=== PATIENT | female | born 1990 | race African-American/Black ===

== ENCOUNTER 2016-09-11 23:42 | Emergency (ER) | payer SELFPAY ==
[2016-09-12] MEDS ORDERED: DIPH/PERTUSS(ACELL)/TETANUS VAC/PF 0.5 ML SYR (>=10YO) IM ONE (00:24)
--- NOTE | 2016-09-12 00:30 | ER Document Report ---
ED General - General Chief Complaint: Laceration Stated Complaint: LACERATION/LEFT PINKY FINGER Time Seen by Provider: 09/12/16 00:14 Notes: Patient is a 26-year-old female who presents with complaint of cutting the tip of her right fifth digit with a box knife. This was accidental. She says he continued to bleed and therefore she came to the ER. No other injuries or trauma. She is unsure when her last tetanus shot was. TRAVEL OUTSIDE OF THE [place] IN LAST 30 DAYS: No - Related Data Allergies/Adverse Reactions: No Known Drug Allergies Allergy (Verified 09/17/12 01:03) cats Allergy (Mild, Uncoded 09/17/12 01:03) Past Medical History - Social History Smoking Status: Never Smoker Frequency of alcohol use: None Drug Abuse: None Family History: Reviewed & Not Pertinent Patient has suicidal ideation: No Patient has homicidal ideation: No Neurological Medical History: Reports: Hx Migraine Renal/ Medical History: Denies: Hx Peritoneal Dialysis - Immunizations Immunizations up to date: Yes Hx Diphtheria, Pertussis, Tetanus Vaccination: Yes - given today Hx Pneumococcal Vaccination: 03/18/00 Review of Systems - Review of Systems Notes: My Normal Review Basic REVIEW OF SYSTEMS: CONSTITUTIONAL : Denies fever, chills, or sweats. Denies recent illness. MUSCULOSKELETAL: cut to the tip of the right fifth digit. SKIN: Denies rash or skin lesions. ALL OTHER SYSTEMS REVIEWED AND NEGATIVE. Physical Exam - Vital signs Vitals: Temp Pulse Resp BP Pulse Ox 98.2 F 86 18 133/75 H 98 09/11/16 23:48 09/11/16 23:48 09/11/16 23:48 09/11/16 23:48 09/11/16 23:48 - Notes Notes: General Appearance: Well nourished, alert, cooperative, no acute distress, mild obvious discomfort. Vitals: reviewed, See vital signs table. Extremities: strength 5/5 in all extremities, good pulses in all extremities, patient is superficial avulsion of the right fifth fingertip. The bulging goes just below the dermis itself. Approximately 1 cm in size. Small amount of active venous oozing., no edema. Skin: warm, dry, appropriate color, no rash Neuro: speech clear, oriented x 3, normal affect, responds appropriately to questions. Course - Vital Signs Vital signs: Temp Pulse Resp BP Pulse Ox 98.2 F 86 18 133/75 H 98 09/11/16 23:48 09/11/16 23:48 09/11/16 23:48 09/11/16 23:48 09/11/16 23:48 - Transfer of Care Notes: 09/12/16 00:28 The finger was irrigated with saline. Then held pressure over the tip of the finger and then applied Dermabond. Patient over has any bleeding with the fingertip. Patient is full function of the fingertip. The cut is superficial. Patient encouraged to return to ER if she has redness or swelling to the finger or any signs of infection. Patient will be given tetanus shot. Patient agrees with plan will be discharged home. Dictation of this chart was performed using voice recognition software; therefore, there may be some unintended grammatical errors. Procedures - Laceration/Wound Repair right 5th digit Wound length (cm): 1 Wound's Depth, Shape: Superficial Wound explored: Clean Irrigated w/ Saline (mLs): 10 Wound Repaired With: Dermabond Complications: No Discharge - Discharge Clinical Impression: Avulsion, finger tip Qualifiers: Encounter type: initial encounter Qualified Code(s): S61.209A - Unspecified open wound of unspecified finger without damage to nail, initial encounter Condition: Good Disposition: HOME, SELF-CARE Additional Instructions: Please return to the ER if you have redness, swelling, or signs of infection.
[2016-09-12 00:57] VITALS: BP 130/76
== END 2016-09-12 00:55 | disposition home or self-care (01) ==
LOC: ER 23:42
DX: S61.209A Unspecified open wound of unspecified finger without damage to nail, initial encounter (principal); W26.0XXA Contact with knife, initial encounter; Z23 Encounter for immunization
CPT/HCPCS: 90471; 90715; 99282

== ENCOUNTER 2016-12-16 21:34 | Emergency (ER) | payer OTHER ==
[2016-12-16] MEDS ORDERED: PROPOFOL INJ 200 MG/20 ML VIAL IV ONE (22:47)
[2016-12-16] MEDS ORDERED: NORMAL SALINE 1000 ML 1,000 ML IV ONE (22:47)
--- NOTE | 2016-12-16 22:49 | RADIOLOGY REPORT (SQ) ---
EXAM DESCRIPTION: SHOULDER RIGHT 2 OR MORE VIEWS COMPLETED DATE/TIME: 12/16/2016 10:22 pm REASON FOR STUDY: pain COMPARISON: None. NUMBER OF VIEWS: Two views. TECHNIQUE: Internal rotation, and Y view images acquired of the right shoulder. LIMITATIONS: None. FINDINGS: MINERALIZATION: Normal. BONES: Anterior- inferior glenohumeral dislocation. No fracture identified. No worrisome bone lesio ns. JOINTS: No dislocation. VISUALIZED LUNGS AND RIBS: No pneumothorax. No rib fracture. SOFT TISSUES: No radiopaque foreign body. OTHER: No other significant finding. IMPRESSION: Anterior- inferior glenohumeral dislocation. No fracture identified. TECHNICAL DOCUMENTATION: JOB ID: [id number] [email or web address]- All Rights Reserved
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
[2016-12-17 00:48] VITALS: BP 126/64
--- NOTE | 2016-12-17 01:25 | RADIOLOGY REPORT (SQ) ---
EXAM DESCRIPTION: SHOULDER RIGHT 1 VIEW COMPLETED DATE/TIME: 12/17/2016 12:32 am REASON FOR STUDY: POST REDUCTION COMPARISON: Right humerus x-ray 12/16/2016 NUMBER OF VIEWS: One view. TECHNIQUE: One view acquired of the right shoulder. LIMITATIONS: None. FINDINGS: MINERALIZATION: Normal. BONES: Interval closed reduction of the previously described anterior right shoulder dislocation. Li viktoriya evaluation for acute fracture on single view. VISUALIZED LUNGS AND RIBS: No pneumothorax. No displaced rib fracture. IMPRESSION: Status post closed reduction of the previously described anterior right shoulder disloca tion. TECHNICAL DOCUMENTATION: JOB ID: [id number] [employer]- All Rights Reserved
== END 2016-12-17 00:48 | disposition home or self-care (01) ==
LOC: ER 21:34
PROC: 0RSJXZZ Reposition Right Shoulder Joint, External Approach (ICD-10-PCS; principal; 2016-12-16)
DX: S43.004A Unspecified dislocation of right shoulder joint, initial encounter (principal); M79.601 Pain in right arm; Y04.0XXA Assault by unarmed brawl or fight, initial encounter; Y99.0 Civilian activity done for income or pay; Z88.0 Allergy status to penicillin
CPT/HCPCS: 99284; 96360; 99152; 73020; 73030; 23650; L3650 ×2; J7030; J2704

== ENCOUNTER 2017-10-22 22:31 | Emergency (ER) | payer OTHER ==
[2017-10-23] MEDS ORDERED: DEXAMETHASONE SOD PHOS INJ 10 MG/1 ML VIAL IM ONE (01:06)
--- NOTE | 2017-10-23 01:07 | ER Document Report ---
ED General - General Chief Complaint: Sore Throat Stated Complaint: SORE THROAT Time Seen by Provider: 10/23/17 00:56 Notes: Patient presents with sore throat and losing her voice. Sore throat started approximately Saturday and the patient's voice issues started earlier today. No known medical problems has not had any nausea vomiting. Is able to swallow. Is playful during exam and laughing with her boyfriend. Patient denies any cough or congestion at this time. TRAVEL OUTSIDE OF THE [place] IN LAST 30 DAYS: No - Related Data Allergies/Adverse Reactions: amoxicillin Allergy (Verified 12/16/16 21:44) No Known Drug Allergies Allergy (Verified 09/17/12 01:03) cats Allergy (Mild, Uncoded 12/16/16 21:44) Past Medical History - Social History Smoking Status: Unknown if Ever Smoked Family History: Reviewed & Not Pertinent Neurological Medical History: Reports: Hx Migraine Renal/ Medical History: Denies: Hx Peritoneal Dialysis - Immunizations Immunizations up to date: Yes Hx Diphtheria, Pertussis, Tetanus Vaccination: Yes - given today Hx Pneumococcal Vaccination: 03/18/00 Review of Systems - Review of Systems Constitutional: No symptoms reported EENT: See HPI Cardiovascular: No symptoms reported Respiratory: No symptoms reported Gastrointestinal: No symptoms reported Genitourinary: No symptoms reported Female Genitourinary: No symptoms reported Musculoskeletal: No symptoms reported Skin: No symptoms reported Hematologic/Lymphatic: No symptoms reported Neurological/Psychological: No symptoms reported Physical Exam - Vital signs Vitals: Temp Pulse Resp BP Pulse Ox 99.0 F 83 16 133/78 H 95 10/22/17 22:44 10/22/17 22:44 10/22/17 22:44 10/22/17 22:44 10/22/17 22:44 - General General appearance: Appears well, Alert - HEENT Head: Normocephalic, Atraumatic - No tonsillar swelling no uvula swelling normal oropharynx no bulging of posterior oropharynx Eyes: Normal Conjunctiva: Normal - Respiratory Respiratory status: No respiratory distress - Lungs are clear to auscultation bilaterally no wheezing or crackles with good air movement - Cardiovascular Rhythm: Regular Heart sounds: Normal auscultation Murmur: No - Abdominal Inspection: Normal - Neurological Cognition: Normal Course - Re-evaluation Re-evalutation: 08/08/18 01:05 Patient well-appearing in no acute distress signs and symptoms are consistent with likely viral pharyngitis with component of laryngitis. Will provide Decadron administration with return precautions provided - Vital Signs Vital signs: Temp Pulse Resp BP Pulse Ox 97.9 F 75 18 133/77 H 98 10/23/17 02:13 10/23/17 02:13 10/23/17 02:13 10/23/17 02:13 10/23/17 02:13 Discharge - Discharge Clinical Impression: Laryngitis Pharyngitis Qualifiers: Pharyngitis/tonsillitis etiology: unspecified etiology Qualified Code(s): J02.9 - Acute pharyngitis, unspecified Condition: Good Disposition: HOME, SELF-CARE Instructions: Corticosteroid Medication ([facility]), Laryngitis ([facility]), Sore Throat ( [facility]) Additional Instructions: Please use [id number] Advil Cold and Sinus for symptom relief return to emergency department the next 3-4 days if symptoms are worsening
[2017-10-23 02:15] VITALS: BP 133/77
== END 2017-10-23 02:15 | disposition home or self-care (01) ==
LOC: ER 22:31
DX: J04.0 Acute laryngitis (principal); J02.9 Acute pharyngitis, unspecified
CPT/HCPCS: 99282; 96372; J1100

== ENCOUNTER 2017-10-25 12:35 | Emergency (ER) | payer OTHER ==
[2017-10-25 12:56] VITALS: BP 117/75
[2017-10-25] MEDS ORDERED: DEXAMETHASONE SOD PHOS INJ 10 MG/1 ML VIAL IV ONE (14:37)
[2017-10-25] MEDS ORDERED: KETOROLAC TROMETHAMINE INJ/PF 30 MG/1 ML SDV IV ONE (14:37)
--- NOTE | 2017-10-25 14:40 | ER Document Report ---
ED ENT - General Chief Complaint: Sore Throat Stated Complaint: SORE THROAT Time Seen by Provider: 10/25/17 14:23 Mode of Arrival: Ambulatory Information source: Patient Notes: 47-year-old female presents to ED for continued sore throat. She states she was in here on Saturday for sore throat and was treated with Decadron and told she had laryngitis but her pain has not gotten better she has not gotten rid of the sore throat she does not have a fever but she feels like her throat has a lump in it. She states her voice has not improved and she can barely talk. She is alert and oriented respirations regular and unlabored she does speak with a hoarse voice and walks with a even steady gait. TRAVEL OUTSIDE OF THE [place] IN LAST 30 DAYS: No - HPI Patient complains to provider of: Throat problem Onset: Other Onset/Duration: Persistent Quality of pain: Sharp Context: Recent Illness Location of pain: Sinus, Throat Associated symptoms: Hoarse voice, Runny nose, Sinus drainage, Sore throat Similar symptoms previously: Yes Recently seen / treated by doctor: Yes - Related Data Allergies/Adverse Reactions: amoxicillin Allergy (Verified 12/16/16 21:44) No Known Drug Allergies Allergy (Verified 09/17/12 01:03) cats Allergy (Mild, Uncoded 12/16/16 21:44) Past Medical History - General Information source: Patient - Social History Smoking Status: Never Smoker Cigarette use (# per day): No Chew tobacco use (# tins/day): No Smoking Education Provided: No Frequency of alcohol use: None Drug Abuse: None Occupation: [employer] Lives with: Family Family History: Reviewed & Not Pertinent Patient has suicidal ideation: No Patient has homicidal ideation: No - Past Medical History Cardiac Medical History: Reports: None Pulmonary Medical History: Reports: None EENT Medical History: Reports: None Neurological Medical History: Reports: Hx Migraine Endocrine Medical History: Reports: None Renal/ Medical History: Reports: None Malignancy Medical History: Reports: None GI Medical History: Reports: None Musculoskeletal Medical History: Reports None Psychiatric Medical History: Reports: None Traumatic Medical History: Reports: None Infectious Medical History: Reports: None Surgical Hx: Negative Past Surgical History: Reports: None - Immunizations Immunizations up to date: Yes Hx Diphtheria, Pertussis, Tetanus Vaccination: Yes - given today Hx Pneumococcal Vaccination: 03/18/00 Review of Systems - Review of Systems Constitutional: No symptoms reported EENT: Sinus discharge, Throat pain, Difficulty swallowing, Other - hoarse voice Cardiovascular: No symptoms reported Respiratory: No symptoms reported Gastrointestinal: No symptoms reported Genitourinary: No symptoms reported Female Genitourinary: No symptoms reported Musculoskeletal: No symptoms reported Skin: No symptoms reported Hematologic/Lymphatic: No symptoms reported Neurological/Psychological: No symptoms reported -: Yes All other systems reviewed and negative Physical Exam - Vital signs Vitals: Temp Pulse Resp BP Pulse Ox 98.6 F 77 18 117/75 99 10/25/17 12:55 10/25/17 12:55 10/25/17 12:55 10/25/17 12:55 10/25/17 12:55 Interpretation: Normal - General General appearance: Appears well, Alert - HEENT Head: Normocephalic, Atraumatic Eyes: Normal Pupils: PERRL Ears: Normal External canal: Normal Tympanic membrane: Normal Sinus: Normal Nasal: Purulent discharge, Swelling Mouth/Lips: Normal Pharynx: Erythema, Post nasal drainage Neck: Anterior cervical chain - Respiratory Respiratory status: No respiratory distress Chest status: Nontender Breath sounds: Nonproductive cough Chest palpation: Normal - Cardiovascular Rhythm: Regular Heart sounds: Normal auscultation Murmur: No - Abdominal Inspection: Normal Distension: No distension Bowel sounds: Normal Tenderness: Nontender Organomegaly: No organomegaly - Back Back: Normal, Nontender - Extremities General upper extremity: Normal inspection, Nontender, Normal color, Normal ROM , Normal temperature General lower extremity: Normal inspection, Nontender, Normal color, Normal ROM , Normal temperature, Normal weight bearing. No: Beverly's sign - Neurological Neuro grossly intact: Yes Cognition: Normal Orientation: AAOx4 [place] Coma Scale Eye Opening: Spontaneous [place] Coma Scale Verbal: Oriented [place] Coma Scale Motor: Obeys Commands Nat Coma Scale Total: 15 Speech: Normal Motor strength normal: LUE, RUE, LLE, RLE Sensory: Normal - Psychological Associated symptoms: Normal affect, Normal mood - Skin Skin Temperature: Warm Skin Moisture: Dry Skin Color: Normal Course - Re-evaluation Re-evalutation: 10/25/17 21:27 Decadron and ibuprofen given to patient for her continued sore throat. Patient was discharged home with prescription for Magic mouthwash. Her strep test and mono test were negative. Patient was given a written report of these results. She was instructed that the throat culture was also sent a day which she would be called if anything showed up on the throat culture. She was instructed to follow-up with her primary doctor and a ENT of her throat continued to be painful. Patient verbalized understanding of instructions and agreement with treatment plan. - Vital Signs Vital signs: Temp Pulse Resp BP Pulse Ox 98.6 F 77 18 117/75 99 10/25/17 12:55 10/25/17 12:55 10/25/17 12:55 10/25/17 12:55 10/25/17 12:55 Discharge - Discharge Clinical Impression: Laryngitis Pharyngitis Qualifiers: Pharyngitis/tonsillitis etiology: unspecified etiology Qualified Code(s): J02.9 - Acute pharyngitis, unspecified Condition: Stable Disposition: HOME, SELF-CARE Instructions: Family Physicians / Practices Additional Instructions: SORE THROAT: Sore throats may be caused by viruses, bacteria, or fungi. Most are due to a virus, and must get better on their own. Bacterial sore throats, particularly those due to "strep," need treatment with antibiotics. If an antibiotic is prescribed, be sure to take the medication for a full 10 days. Failure to take the antibiotic can result in complications such as rheumatic fever. Sometimes, an injection of antibiotics is given instead of pills or liquid. This single "shot" is equal in effectiveness to the oral medication. To relieve symptoms, take acetaminophen for pain. Sip clear liquids frequently, or eat popsicles or ice chips. Anesthetic sprays or lozenges may help. Make sure the air in the room is not too dry. Avoid using decongestants or antihistamines. Call the doctor if there is no improvement in two days, or if you have difficulty breathing, increasing throat pain, high fever, rash, or frequent vomiting. STEROID MEDICATION: You have been given a medicine of the cortisone/steroid class. This medication is used to control inflammation or allergy. It is usually only given for a short period of time, until the acute process subsides. There are usually no side effects from short-term use of cortisone-like medications. Some persons feel an increased sense of well-being and are not sleepy at bedtime. Long-term use of cortisone medications is best avoided, unless required for a severe condition. If your condition does not remit, or relapses after the course of corticosteroid medication, you should consult your physician. Acetaminophen Acetaminophen may be taken for pain relief or fever control. It's much safer than aspirin, offering a wider range of "safe" dosages. It is safe during . Some brand names are Tylenol, Panadol, Datril, Anacin 3, Tempra, and Liquiprin. Acetaminophen can be repeated every four hours. The following are maximum recommended dosages: WEIGHT Dose Drops Elixir Chewable( 80mg) (LBS.) drprs=droppers tsp=teaspoon 6 40 mg .4 ml (1/2) 6-11 80 mg .8 ml (full) 1/2 tsp 1 tab 12-16 120 mg 1 1/2 drprs 3/4 tsp 1 1/2 tabs 17-23 160 mg 2 drprs 1 tsp 2 tabs 24-30 240 mg 3 drprs 1 1/2 tsp 3 tabs 30-35 320 mg 2 tsp 4 tabs 36-41 360 mg 2 1/4 tsp 4 1 /2 tabs 42-47 400 mg 2 1/2 tsp 5 tabs 48-53 480 mg 3 tsp 6 tabs 54-59 520 mg 3 1/4 tsp 6 1 /2 tabs 60-64 560 mg 3 1/2 tsp 7 tabs 65-70 600 mg 3 3/4 tsp 7 1 /2 tabs 71-76 640 mg 4 tsp 8 tabs 77-82 720 mg 4 1/2 tsp 9 tabs 83-88 800 mg 5 tsp 10 tabs >89 pounds or adults 650 mg to 900 mg Acetaminophen can be repeated every four hours. Maximum daily dose not to exceed 4000 mg. These maximum recommended dosages are slightly higher than the dosages written on the product container, but these dosages are very safe and well below the toxic dosage for acetaminophen. Salt and soda solution 1 quart of water 1 tablespoon of salt 1 teaspoon of baking soda Mixed 3 ingredients together and boil for 1 minute Placed in a covered quart jar Use 1/2 ounce of cold solution to gargle 3 times a day FOLLOW-UP CARE: If you have been referred to a physician for follow-up care, call the physician s office for an appointment as you were instructed or within the next two days. If you experience worsening or a significant change in your symptoms, notify the physician immediately or return to the Emergency Department at any time for re-evaluation. Prescriptions: Nystatin/Dexameth/Diphen [Magic Mouthwash ([facility] Formula) Susp] 5 ml PO QID #120 ml
[2017-10-25] MEDS ORDERED: DEXAMETHASONE SOD PHOS INJ 10 MG/1 ML VIAL IM ONE (15:07)
[2017-10-25] MEDS ORDERED: IBUPROFEN 800 MG TABLET PO ONE (15:07)
== END 2017-10-25 16:54 | disposition home or self-care (01) ==
LOC: ER 12:35
DX: J02.9 Acute pharyngitis, unspecified (principal); J04.0 Acute laryngitis; R09.82 Postnasal drip; R13.10 Dysphagia, unspecified; Z88.0 Allergy status to penicillin; Z91.048 Other nonmedicinal substance allergy status
CPT/HCPCS: 99283; 96372; 36415; 87070; 87880; 86308; J1100

== ENCOUNTER 2019-04-17 08:28 | Emergency (ER) | payer SELFPAY ==
[2019-04-17 08:33] VITALS: BP 146/79
[2019-04-17] MEDS ORDERED: NAPROXEN 250 MG TABLET PO ONE (09:21)
--- NOTE | 2019-04-17 09:25 | ER Document Report ---
HPI - HPI Patient complains to provider of: Right middle finger pain Time Seen by Provider: 04/17/19 09:13 Pain Level: 2 Notes: 29-year-old female to the emergency department with complaints of right middle finger pain to the distal portion around the nailbed. She states this started yesterday. She states that the little swollen. She denies any injuries. She does not bite her fingernails. She denies any fevers, chills, pain to the pad of the finger. - CONSTITUTIONAL Constitutional: DENIES: Fever, Chills - EENT EENT: DENIES: Sore Throat, Ear Pain, Nasal Drainage-Clear, Nasal Drainage- Purulent, Congestion, Eye problems - NEURO Neurology: DENIES: Headache - CARDIOVASCULAR Cardiovascular: DENIES: Chest pain - RESPIRATORY Respiratory: DENIES: Trouble Breathing, Coughing - GASTROINTESTINAL Gastrointestinal: DENIES: Abdominal Pain, Nausea, Patient vomiting, Diarrhea, Constipation - MUSCULOSKELETAL Notes: right middle finger pain and swelling - DERM Skin Color: Normal Skin Problems: None Past Medical History - General Information source: Patient - Social History Smoking Status: Never Smoker Frequency of alcohol use: None Drug Abuse: None Family History: Reviewed & Not Pertinent Patient has suicidal ideation: No Patient has homicidal ideation: No Neurological Medical History: Reports: Hx Migraine Renal/ Medical History: Denies: Hx Peritoneal Dialysis - Immunizations Immunizations up to date: Yes Hx Diphtheria, Pertussis, Tetanus Vaccination: Yes - given today Hx Pneumococcal Vaccination: 03/18/00 Vertical Provider Document - CONSTITUTIONAL Agree With Documented VS: Yes Exam Limitations: No Limitations General Appearance: WD/WN, No Apparent Distress - INFECTION CONTROL TRAVEL OUTSIDE OF THE [place] IN LAST 30 DAYS: No - HEENT HEENT: Atraumatic, Normal ENT Exam, Normocephalic, PERRLA - NECK Neck: Normal Inspection, Supple - RESPIRATORY Respiratory: Breath Sounds Normal, No Respiratory Distress. negative: Rales, Rhonchi, Wheezing - CARDIOVASCULAR Cardiovascular: Regular Rate, Regular Rhythm, No Murmur - GI/ABDOMEN Gastrointestinal: Abdomen Soft, Abdomen Non-Tender - BACK Back: Normal Inspection - MUSCULOSKELETAL/EXTREMETIES Notes: To the right middle finger around the nailbed there is an evolving paronychia. It is not fluctuant and does not appear ready to be drained. Full range of motion of all fingers against resistance with 5 out of 5 strength in flexion and extension. Cap refill is less than 2 seconds in all fingers. Radial pulses intact and equal. - NEURO Level of Consciousness: Awake, Alert Motor/Sensory: No Motor Deficit, No Sensory Deficit - DERM Integumentary: Warm Notes: See musculoskeletal for further conversation about paronychia to the right middle finger. Course - Re-evaluation Re-evalutation: 04/18/19 2 Impression: Right middle finger paronychia. Not fluctuant so do not think it is prudent to try to drain it. Will start on antibiotics. While patient follow-up in 2 days for possible drainage. Encouraged warm compresses. Patient agrees with plan. - Vital Signs Vital signs: Temp Pulse Resp BP Pulse Ox 98.2 F 73 20 146/79 H 97 04/17/19 08:32 04/17/19 08:32 04/17/19 08:32 04/17/19 08:32 04/17/19 08:32 Discharge - Discharge Clinical Impression: Paronychia, Finger pain, right Condition: Stable Disposition: HOME, SELF-CARE Instructions: Paronychia ([facility]) Additional Instructions: Apply warm compresses. complete antibiotics; wear sun protection as the antibiotic does have increased photosensitivity. Push fluids. Return in two days for a wound check. Prescriptions: Doxycycline Monohydrate 100 mg PO BID #20 tablet Naproxen [Naprosyn] 500 mg PO BID #20 tablet Referrals: [facility] [Provider Group] - Follow up in 1 week
== END 2019-04-17 09:43 | disposition home or self-care (01) ==
LOC: ER 08:28
DX: L03.011 Cellulitis of right finger (principal); M79.644 Pain in right finger(s)
CPT/HCPCS: 99283

== ENCOUNTER 2019-05-19 10:24 | Emergency (ER) | payer SELFPAY ==
[2019-05-19] MEDS ORDERED: KETOROLAC TROMETHAMINE 60 MG/2 ML SDV IM ONE (10:30)
--- NOTE | 2019-05-19 10:30 | ER Document Report ---
HPI - HPI Time Seen by Provider: 05/19/19 10:28 Context: 29 y/o female presents for right middle finger pain/swelling for over 1 month. Pt states she was seen at the end of March in this ER and diagnosed with a paronychia and was placed on antibiotics. Pt states there have been no changes in symptoms. Denies specific injury. Pt states finished all of the antibiotics. - REPRODUCTIVE Reproductive: DENIES: : Past Medical History - General Information source: Patient - Social History Smoking Status: Unknown if Ever Smoked Family History: Reviewed & Not Pertinent Neurological Medical History: Reports: Hx Migraine Renal/ Medical History: Denies: Hx Peritoneal Dialysis - Immunizations Immunizations up to date: Yes Hx Diphtheria, Pertussis, Tetanus Vaccination: Yes - given today Hx Pneumococcal Vaccination: 03/18/00 Vertical Provider Document - CONSTITUTIONAL Agree With Documented VS: Yes Notes: GENERAL: Well-appearing, well-nourished and in no acute distress. HEAD: Atraumatic, normocephalic. EYES: Extraocular movements intact, sclera anicteric, conjunctiva are normal. NECK: Normal range of motion, supple without lymphadenopathy or JVD. Right hand: Mild swelling to distal right middle finger. Half of nail appears yellow. No erythema. FROM at DIP and PIP. Cap refill < 2 sec. Radial pulse 2+ NEUROLOGICAL: Cranial nerves II through XII grossly intact. Normal speech, normal gait. PSYCH: Normal mood, normal affect. SKIN: Warm, Dry, normal turgor, no rashes or lesions noted. - INFECTION CONTROL TRAVEL OUTSIDE OF THE [place] IN LAST 30 DAYS: No Course - Re-evaluation Re-evalutation: 05/19/19 Nontoxic, well appearing 29 y/o female presents for right middle finger pain/swelling for over 1 month. FROM at DIP and PIP. No erythema to suggest infection. Distal neurovascular intact. PE is otherwise unremarkable. Pt already completed course of doxycycline for paronychia at the beginning of April. Patient has not followed up, states she does not have a PCP. X-ray was ordered. 05/19/19 11:16 Hand XR negative. 05/19/19 11:34 Exam consistent with onchomycosis. Will treat with topical therapy and give pt close follow up with PCP. Strict return precautions given. Pt voices understanding and agrees with plan of care. Discharge - Discharge Clinical Impression: Onychomycosis Condition: Stable Disposition: HOME, SELF-CARE Instructions: Fungal Nail Infection ([facility]) Additional Instructions: Your x-ray was normal. Please use topical antifungal as prescribed. Please follow-up with 1 of the clinics listed in 1 to 2 weeks. Return immediately to ER if you start having any worsening symptoms, including increased swelling, redness to area, fever, inability to move your finger, or any other symptoms that are concerning to you. Prescriptions: Efinaconazole [Jublia] 4 ml TP ONCE PRN #48 [email or web address] PRN Reason: Forms: Return to Work Referrals: ALYSSA ROQUE MD [COMMUNITY BASED STAFF] - Follow up as needed [facility] [Provider Group] - Follow up as needed
--- NOTE | 2019-05-19 11:08 | RADIOLOGY REPORT (SQ) ---
EXAM DESCRIPTION: HAND RIGHT 3 VIEWS COMPLETED DATE/TIME: 05/19/2019 10:55 am REASON FOR STUDY: right middle finger swelling/pain for 1 month COMPARISON: 04/04/2007. EXAM PARAMETERS: NUMBER OF VIEWS: Three views. TECHNIQUE: AP, lateral and oblique radiographic images acquired of the right hand. LIMITATIONS: None. FINDINGS: MINERALIZATION: Normal. BONES: No acute fracture or dislocation. No worrisome bone lesions. No significant osteophytes. JOINTS: No erosions. No helen-articular osteopenia. No chondrocalcinosis. SOFT TISSUES: No swelling. No calcifications. OTHER: No other significant finding. IMPRESSION: NEGATIVE STUDY OF THE RIGHT HAND. TECHNICAL DOCUMENTATION: JOB ID: [id number] 2010 [employer]- All Rights Reserved Reading location - IP/workstation name: [email or web address]
[2019-05-19 11:19] VITALS: BP 130/85
== END 2019-05-19 11:40 | disposition home or self-care (01) ==
LOC: ER 10:24
DX: B35.1 Tinea unguium (principal); M79.644 Pain in right finger(s)
CPT/HCPCS: 99283; 96372; 81025; 73130; J1885

== ENCOUNTER 2019-11-03 08:03 | Emergency (ER) | payer SELFPAY ==
[2019-11-03] MEDS ORDERED: ONDANSETRON HCL INJ/PF 4 MG/2 ML SDV IV ONE (08:43)
[2019-11-03] MEDS ORDERED: NORMAL SALINE 1000 ML 1,000 ML IV ONE (08:43)
[2019-11-03] MEDS ORDERED: KETOROLAC TROMETHAMINE INJ/PF 30 MG/1 ML SDV IV ONE (08:43)
--- NOTE | 2019-11-03 08:50 | ER Document Report ---
ED General - General Chief Complaint: Flank Pain Stated Complaint: RIGHT FLANK PAIN Time Seen by Provider: 11/03/19 08:33 TRAVEL OUTSIDE OF THE [place] IN LAST 30 DAYS: No - HPI Notes: Chief complaint: Right flank pain and abdominal pain History of present illness: 29-year-old female with no prior known history of kidney stones awakened this morning with severe cramping pain right flank area radiating into right upper quadrant right lower quadrant of abdomen and down into the pelvis. Pain intensity 10/10. Associated nausea with multiple episodes of vomiting. No fever or chills. No gross hematuria. Patient says she is finishing her menstrual cycle now has slight spotting. No prior surgery. No regular medications. History of urticarial reaction to amoxicillin. - Related Data Allergies/Adverse Reactions: amoxicillin Allergy (Verified 05/19/19 10:35) cats Allergy (Mild, Uncoded 05/19/19 10:35) Past Medical History - General Information source: Patient, Relative, [facility] Records - Social History Smoking Status: Current Every Day Smoker Frequency of alcohol use: Occasional Drug Abuse: None Lives with: Family Family History: Reviewed & Not Pertinent - Medical History Medical History: Negative Neurological Medical History: Reports: Hx Migraine Renal/ Medical History: Denies: Hx Peritoneal Dialysis Surgical Hx: Negative - Immunizations Immunizations up to date: Yes Hx Diphtheria, Pertussis, Tetanus Vaccination: Yes - given today Hx Pneumococcal Vaccination: 03/18/00 Review of Systems - Review of Systems Notes: Constitutional: Negative for fever. HENT: Negative for sore throat. Eyes: Negative for visual changes. Cardiovascular: Negative for chest pain. Respiratory: Negative for shortness of breath. Gastrointestinal: As per HPI. Genitourinary: As per HPI. Musculoskeletal: As per HPI. Skin: Negative for rash. Neurological: Negative for headaches, weakness or numbness. 10 point ROS negative except as marked above and in HPI. Physical Exam - Vital signs Vitals: Temp Pulse Resp BP Pulse Ox 98.2 F 60 22 H 139/98 H 100 11/03/19 08:06 11/03/19 08:06 11/03/19 08:06 11/03/19 08:06 11/03/19 08:06 Interpretation: Hypertensive - Notes Notes: GENERAL: Mildly obese female approximately stated age who appears in severe distress due to pain. Patient is crying and anxious. SKIN: Good turgor no rashes. HEAD: Normocephalic atraumatic. EYES: PERRLA. EOMI. Conjunctivae and sclerae clear. EARS: CANALS AND TMS CLEAR. NOSE: CLEAR. MOUTH: Moist mucosa. Good dentition. No stridor or edema. No drooling. NECK: Supple. No masses or thyromegaly. No adenopathy. Carotids 2+ without bruits. No JVD. BACK: Symmetrical with mild right CVA tenderness. CHEST: Respirations unlabored. Breath sounds clear and symmetrical. HEART: Regular rhythm. No murmur gallop or rub. ABDOMEN: Mild right upper quadrant tenderness. Soft without masses, organomegaly or rebound. Bowel sounds normally active. No bruits. GENITALIA: Deferred. EXTREMITIES: No edema. No calf tenderness. Cap refill less than 1.5 seconds. Dorsalis pedis and posterior tibial pulses 3+ and symmetrical. NEUROLOGICAL: GCS 15. Alert and oriented x3. Fluent speech. Cranial nerves II through XII intact. Sensorimotor and cerebellar normal. Normal tone. PSYCHIATRIC: Anxious affect. Course - Re-evaluation Re-evalutation: 11/03/19 15:07 This is a previously healthy 29-year-old female who came in with clinically what appeared to be a right-sided renal colic of new onset this morning. Presence of a 4.4 mm stone at the right UVJ was demonstrated. We initially gave her IV Toradol and normal saline. Her pain improved somewhat but did not completely resolve with this and then actually became worse. She was subsequently given a dose of IV morphine. Her pain was totally controlled although she was quite sedated afterward. I talked with her mother and advised her that she should be stable for discharge after recovery from the sedative effects of the medication. Mother understands that they will need to follow-up with urology on outpatient basis and that it is likely that stone should pass spontaneously given its size and anatomical location. Findings, clinical impression and plan of treatment have been discussed with patient/family. Understanding of current findings and recommendations has been acknowledged by them and there is agreement regarding disposition and follow-up. - Vital Signs Vital signs: Temp Pulse Resp BP Pulse Ox 98.2 F 60 22 H 139/98 H 100 11/03/19 08:06 11/03/19 08:06 11/03/19 08:06 11/03/19 08:06 11/03/19 08:06 - Laboratory Result Diagrams: 11/03/19 08:45 11/03/19 08:45 Laboratory results interpreted by me: 11/03/19 11/03/19 11/03/19 08:45 08:45 08:45 WBC 10.7 H Absolute Neuts (auto) 8.3 H Est GFR (MDRD) Non-Af 57 L Urine Blood MODERATE H Ur Leukocyte Esterase MODERATE H - Diagnostic Test Radiology reviewed: Reports reviewed - Per radiologist review of noncontrast CT abdomen/pelvis: Patient has an intrarenal stone on the left. She has a partially obstructing 4.4 mm stone in the right ureter at the UVJ. Discharge - Discharge Clinical Impression: Ureterolithiasis with renal colic right Condition: Stable Disposition: HOME, SELF-CARE Additional Instructions: Kidney Stone You are passing or have passed a kidney stone. These stones are usually due to increased calcium or uric acid concentrations in your urine. Stones within the kidney itself are not painful. The pain occurs as the stone leaves the kidney to pass down the long tube, called the ureter, leading to the bladder. If the stone is small, it will usually pass by itself. Most patients can pass the stone at home. You will usually receive medications for pain, nausea or vomiting, and sometimes a medication to assist in passing the kidney stone. However, if the pain is very severe or if vomiting prevents you from taking oral pain medications, you may need to return for further treatment. Drink three or four quarts of fluids per day. You will be given pain medication (if needed) and urine strainers. Strain all your urine to see if the stone passes. If your doctor has asked you to bring the stone in for analysis, return with the stone once it has passed. Return if pain or vomiting become severe, if you develop a high fever, if you are unable to pass your urine, or if other unusual symptoms occur. You will be provided a work note for the next 3 days. You will be provided the name of a urologist and you should schedule a visit within the next week to be rechecked. Return here as needed for new or worsening symptoms: Pain that is worsening or unimproved Uncontrolled vomiting High fever or shaking chills Overall worsening Prescriptions: Tramadol HCl [Ultram 50 mg Tablet] 50 mg PO Q4HP PRN #12 tab PRN Reason: Tamsulosin HCl [Flomax 0.4 mg Cap.sr] 0.4 mg PO DAILY #7 cap.sr.24h Ondansetron [Zofran Odt 4 mg Tablet] 1 - 2 tab PO Q4H PRN #15 tab.rapdis PRN Reason: For Nausea/Vomiting Forms: Return to Work Referrals: [facility] [Provider Group] - Follow up as needed
[2019-11-03 09:05] LABS: ABSOLUTE EOSINOPHILS # (AUTO) 0.1 10^3/uL (0.0-0.6); ABSOLUTE LYMPHOCYTES (AUTO) 1.8 10^3/uL (0.5-4.7); ABSOLUTE MONOCYTES (AUTO) 0.5 10^3/uL (0.1-1.4); ABSOLUTE NEUT (AUTO) 8.3 10^3/uL (1.7-8.2); BASOPHILS % (AUTO) 0.3 % (0-2); LYMPHOCYTES % (AUTO) 17.2 % (13-45); MEAN CORPUSCULAR HEMOGLOBIN 32.2 pg (27.0-33.4); MEAN CORPUSCULAR HGB CONC 34.1 g/dL (32.0-36.0); MEAN CORPUSCULAR VOLUME 95 fl (80-97); MONOCYTES % (AUTO) 4.4 % (3-13); PLATELET COUNT 289 10^3/uL (150-450); RED BLOOD COUNT 4.02 10^6/uL (3.72-5.28); RED CELL DISTRIBUTION WIDTH 12.9 % (11.5-14.0); SEGMENTED NEUTROPHILS % (AUTO) 77.1 % (42-78); TOTAL CELLS COUNTED % (AUTO) 100 %; WHITE BLOOD COUNT 10.7 10^3/uL (4.0-10.5)
[2019-11-03 09:16] LABS: APPEARANCE,URINE CLOUDY; BILIRUBIN,URINE NEGATIVE (NEGATIVE); COLOR,URINE YELLOW; GLUCOSE, URINE NEGATIVE (NEGATIVE); KETONES,URINE NEGATIVE (NEGATIVE); LEUKOCYTE ESTERASE,URINE MODERATE (NEGATIVE); NITRITE,URINE NEGATIVE (NEGATIVE); PROTEIN,URINE NEGATIVE (NEGATIVE); URINE SPECIFIC GRAVITY 1.018; UROBILINOGEN,URINE NEGATIVE mg/dL (<2.0)
[2019-11-03 09:25] LABS: ALBUMIN 4.4 g/dL (3.5-5.0); ALKALINE PHOSPHATASE 92 U/L (38-126); ANION GAP 9 (5-19); ASPARTATE AMINO TRANSFERASE 28 U/L (14-36); BILIRUBIN,TOTAL 0.6 mg/dL (0.2-1.3); BLOOD UREA NITROGEN 19 mg/dL (7-20); CALCIUM 9.4 mg/dL (8.4-10.2); CARBON DIOXIDE 26 mmol/L (22-30); CHLORIDE 107 mmol/L (98-107); GLUCOSE 108 mg/dL (75-110); POTASSIUM 4.3 mmol/L (3.6-5.0); TOTAL PROTEIN 7.4 g/dL (6.3-8.2)
--- NOTE | 2019-11-03 10:30 | RADIOLOGY REPORT (SQ) ---
EXAM DESCRIPTION: CT ABD/PELVIS NO ORAL OR IV IMAGES COMPLETED DATE/TIME: 11/03/2019 10:11 am REASON FOR STUDY: RUQ pain COMPARISON: None. TECHNIQUE: CT scan of the abdomen and pelvis performed without intravenous or oral contrast. Images reviewed with lung, soft tissue, and bone windows. Reconstructed coronal and sagittal MPR images revi ewed. All images stored on PACS. All CT scanners at this facility use dose modulation, iterative reconstruction, and/or weight based d osing when appropriate to reduce radiation dose to as low as reasonably achievable (ALARA). [facility]: Dose Right [facility]: CareDose [facility]: Dose Right [facility]: Teradose 4D [facility]: [employer] RADIATION DOSE: CT Rad equipment meets quality standard of care and radiation dose reduction techniq ues were employed. CTDIvol: 9.6 mGy. DLP: 551 mGy-cm. LIMITATIONS: None. FINDINGS: LOWER CHEST: No acute findings. NON-CONTRASTED LIVER, SPLEEN, ADRENALS: Evaluation is limited due to the absence of intravenous contr ast. There is no evidence of hepatic steatosis. The spleen is normal in size. There is no adrenal mass. PANCREAS: No acute gross abnormality of the pancreas. GALLBLADDER: No abnormality that is apparent on CT. RIGHT KIDNEY AND URETER: Evaluation is limited due to the absence of intravenous contrast. There is a 4 x 4 mm calculus within the ureterovesicular junction (image 81 of series 3) that is associated wi th moderate hydroureteronephrosis. There is no other renal or ureteral calculus. LEFT KIDNEY AND URETER: Evaluation is limited due to the absence of intravenous contrast. There is a 3 mm calculus within a lower pole calyx. There is no associated hydronephrosis, hydroureter or uret erolithiasis. AORTA AND RETROPERITONEUM: No aneurysm of the abdominal aorta. No retroperitoneal knob the, hemorrha ge or mass. BOWEL AND PERITONEAL CAVITY: No bowel obstruction, bowel wall thickening or pericolonic/ perienteric inflammation. No mesenteric adenopathy, free intraperitoneal fluid or mesenteric/ omental inflammati on. APPENDIX: Normal. PELVIS, BLADDER, AND ABDOMINAL WALL:No acute abnormality. BONES: No acute findings. OTHER: No other finding. IMPRESSION: 1. 4 x 4 mm calculus within the right ureterovesicular junction (image 81 of series 3) that is associated with moderate ipsilateral hydroureteronephrosis. 2. 3 mm caliceal calculus in the lower pole of the left kidney. COMMENT: Quality ID # [id number]: Final reports with documentation of one or more dose reduction techniques (e.g., Automated exposure control, adjustment of the mA and/or kV according to patient size, use of iterative reconstruction technique) TECHNICAL DOCUMENTATION: JOB ID: [id number] 2010 [employer]- All Rights Reserved Reading location - IP/workstation name: [email or web address]
[2019-11-03] MEDS ORDERED: MORPHINE SULFATE 10 MG/ML INJ IV ONE (10:32)
[2019-11-03 16:01] VITALS: BP 106/54
== END 2019-11-03 15:59 | disposition home or self-care (01) ==
LOC: ER 08:03
DX: N20.1 Calculus of ureter (principal); R10.9 Unspecified abdominal pain; R10.11 Right upper quadrant pain; R10.31 Right lower quadrant pain; R10.2 Pelvic and perineal pain; R11.2 Nausea with vomiting, unspecified; Z88.0 Allergy status to penicillin; F17.200 Nicotine dependence, unspecified, uncomplicated
CPT/HCPCS: 99285; 96361; 96374; 96375; 36415; 83690; 84703; 85025; 80053; 81001; 74176; J1885; J2270; J2405; J7030

== ENCOUNTER 2020-03-18 12:24 | Emergency (ER) | payer SELFPAY ==
--- NOTE | 2020-03-18 13:33 | ER Document Report ---
ED Medical Screen (RME) - General Stated Complaint: ABDOMINAL PAIN Time Seen by Provider: 03/18/20 13:29 Mode of Arrival: Ambulatory Information source: Patient Notes: Patient presents complaining of abdominal pain off and on for the past 3 days. Patient does complain of some nausea. Patient denies any vomiting diarrhea or fever. Patient denies any urinary symptoms. Patient is late on her menstrual cycle and is concerned about possible . Patient denies any significant past medical history. I have greeted and performed a rapid initial assessment of this patient. A comprehensive ED assessment and evaluation of the patient, analysis of test results and completion of the medical decision making process will be conducted by additional ED providers. TRAVEL OUTSIDE OF THE [place] IN LAST 30 DAYS: No - Related Data Allergies/Adverse Reactions: amoxicillin Allergy (Verified 05/19/19 10:35) cats Allergy (Mild, Uncoded 05/19/19 10:35) Past Medical History Neurological Medical History: Reports: Hx Migraine Renal/ Medical History: Denies: Hx Peritoneal Dialysis - Immunizations Immunizations up to date: Yes Hx Diphtheria, Pertussis, Tetanus Vaccination: Yes - given today Physical Exam - Vital signs Vitals: Temp Pulse Resp BP Pulse Ox 98.4 F 58 L 22 H 145/85 H 99 03/18/20 12:30 03/18/20 12:30 03/18/20 12:03/18/20 12:30 03/18/20 12:30 - Abdominal Tenderness: Tender - Across mid abdomen, exam limited with patient in chair Course - Vital Signs Vital signs: Temp Pulse Resp BP Pulse Ox 98.4 F 58 L 22 H 145/85 H 99 03/18/20 12:30 03/18/20 12:30 03/18/20 12:30 03/18/20 12:30 03/18/20 12:30
[2020-03-18 14:19] LABS: ABSOLUTE MONOCYTES (AUTO) 0.5 10^3/uL (0.1-1.4); ABSOLUTE NEUT (AUTO) 6.2 10^3/uL (1.7-8.2); BASOPHILS % (AUTO) 0.3 % (0-2); EOSINOPHILS % (AUTO) 0.5 % (0-6); HEMATOCRIT 37.7 % (36.0-47.0); HEMOGLOBIN 13.1 g/dL (12.0-15.5); LYMPHOCYTES % (AUTO) 22.7 % (13-45); MEAN CORPUSCULAR HEMOGLOBIN 32.5 pg (27.0-33.4); MEAN CORPUSCULAR HGB CONC 34.7 g/dL (32.0-36.0); MEAN CORPUSCULAR VOLUME 94 fl (80-97); MONOCYTES % (AUTO) 5.3 % (3-13); PLATELET COUNT 271 10^3/uL (150-450); RED BLOOD COUNT 4.02 10^6/uL (3.72-5.28); RED CELL DISTRIBUTION WIDTH 12.8 % (11.5-14.0); SEGMENTED NEUTROPHILS % (AUTO) 71.2 % (42-78); TOTAL CELLS COUNTED % (AUTO) 100 %; WHITE BLOOD COUNT 8.7 10^3/uL (4.0-10.5)
[2020-03-18 14:24] LABS: APPEARANCE,URINE SLIGHTLY-CLOUDY; BILIRUBIN,URINE NEGATIVE (NEGATIVE); COLOR,URINE YELLOW; GLUCOSE, URINE NEGATIVE (NEGATIVE); KETONES,URINE NEGATIVE (NEGATIVE); LEUKOCYTE ESTERASE,URINE MODERATE (NEGATIVE); NITRITE,URINE NEGATIVE (NEGATIVE); PROTEIN,URINE NEGATIVE (NEGATIVE); URINE SPECIFIC GRAVITY 1.021; UROBILINOGEN,URINE NEGATIVE mg/dL (<2.0)
[2020-03-18 14:37] LABS: ALBUMIN 4.5 g/dL (3.5-5.0); ALKALINE PHOSPHATASE 79 U/L (38-126); ANION GAP 7 (5-19); ASPARTATE AMINO TRANSFERASE 23 U/L (14-36); BILIRUBIN,DIRECT 0.2 mg/dL (0.0-0.4); BILIRUBIN,TOTAL 0.6 mg/dL (0.2-1.3); BLOOD UREA NITROGEN 18 mg/dL (7-20); CALCIUM 9.5 mg/dL (8.4-10.2); CARBON DIOXIDE 28 mmol/L (22-30); CHLORIDE 103 mmol/L (98-107); GLUCOSE 87 mg/dL (75-110); POTASSIUM 4.2 mmol/L (3.6-5.0); TOTAL PROTEIN 7.7 g/dL (6.3-8.2)
--- NOTE | 2020-03-18 16:01 | RADIOLOGY REPORT (SQ) ---
EXAM DESCRIPTION: U/S OB TRANSVAGINAL W/O DOP IMAGES COMPLETED DATE/TIME: 03/18/2020 3:42 pm REASON FOR STUDY: abd pain COMPARISON: None. TECHNIQUE: Transvaginal static and realtime grayscale images acquired of the pelvis. Additional edgar cted spectral and color Doppler images recorded. All images stored on PACs. CLINICAL AGE: 5 week 0 day. bHCG: Pending. LIMITATIONS: None. FINDINGS: UTERUS: No masses. No anomalies. GESTATIONAL SAC: Normal shape. Size corresponds to a 5 week 2 day gestation. YOLK SAC: Yes. POLE: None present. RIGHT ADNEXA: Normal ovary with normal vascular flow. No adnexal free fluid. No adnexal masses. LEFT ADNEXA: Normal ovary with normal vascular flow. No adnexal free fluid. No adnexal masses. FREE FLUID: None. OTHER: No other significant finding. IMPRESSION: POSSIBLE EARLY INTRAUTERINE . BHCG LEVEL NOT AVAILABLE FOR CORRELATION WITH US FINDINGS. CONSIDER F/U BHCG AND/OR ULTRASOUND FOR VERIFICATION AND TO EXCLUDE ECTOPIC . Trimester of : First trimester - 0 to 13 weeks. TECHNICAL DOCUMENTATION: JOB ID: [id number] 2010 [employer]- All Rights Reserved Reading location - IP/workstation name: [email or web address]
--- NOTE | 2020-03-18 17:52 | ER Document Report ---
ED General - General Chief Complaint: Abdominal Pain Stated Complaint: ABDOMINAL PAIN Time Seen by Provider: 03/18/20 13:29 Primary Care Provider: MICA JONES MD [ACTIVE STAFF] - Follow up as needed Mode of Arrival: Ambulatory TRAVEL OUTSIDE OF THE [place] IN LAST 30 DAYS: No - HPI Notes: Patient is a 30-year-old female who presents emergency department for evaluation of lower abdominal cramping. Her symptoms have been present intermittently for 3 days. Nothing seems to make it better or worse. Her pain is minimal. She had some nausea with emesis 1 week ago but none since then. No fevers or chills. She is eating and drinking normally. No burning with urination. Normal bowel movements. She has had absolutely no vaginal bleeding. - Related Data Allergies/Adverse Reactions: amoxicillin Allergy (Verified 05/19/19 10:35) cats Allergy (Mild, Uncoded 05/19/19 10:35) Past Medical History - General Information source: Patient - Social History Smoking Status: Never Smoker Frequency of alcohol use: Social Drug Abuse: Marijuana Family History: Reviewed & Not Pertinent, DM, Hypertension Neurological Medical History: Reports: Hx Migraine Renal/ Medical History: Denies: Hx Peritoneal Dialysis - Immunizations Immunizations up to date: Yes Hx Diphtheria, Pertussis, Tetanus Vaccination: Yes - given today Hx Pneumococcal Vaccination: 03/18/00 Review of Systems - Review of Systems Constitutional: No symptoms reported EENT: No symptoms reported Cardiovascular: No symptoms reported Respiratory: No symptoms reported Gastrointestinal: See HPI Genitourinary: No symptoms reported Female Genitourinary: No symptoms reported Musculoskeletal: No symptoms reported Skin: No symptoms reported Neurological/Psychological: No symptoms reported Physical Exam - Vital signs Vitals: Temp Pulse Resp BP Pulse Ox 98.4 F 58 L 22 H 145/85 H 99 03/18/20 12:30 03/18/20 12:30 03/18/20 12:30 03/18/20 12:30 03/18/20 12:30 - Notes Notes: Vital signs reviewed, please refer to chart. Head is normocephalic, atraumatic. Pupils equal round, reactive to light. Neck is supple without meningismus. Heart is regular rate and rhythm. Lungs are clear to auscultation bilaterally. Abdomen is soft, very mild suprapubic tenderness without rebound or guarding, normoactive bowel sounds throughout. Extremities without cyanosis, clubbing. Posterior calves are nontender. Peripheral pulses are equal. Skin is warm and dry. Patient is awake, alert, neurological exam is nonfocal. Course - Re-evaluation Re-evalutation: 03/18/20 17:50 Patient presents emergency department for evaluation of lower abdominal pain, intermittent nausea. Her last menstrual period was in January. Her laboratory investigations and ultrasound correlate with approximately 5-week . I do not have a high suspicion of an ectopic given her beta, her last menstrual period timing, and her ultrasound findings. These findings were communicated to the patient. She does not desire to continue this . I did give her instructions in case she changes her mind, particularly in regards to avoiding alcohol and drug use of any sort, starting vitamins. She voiced understanding. Otherwise I will give her referral to [facility], she is to return to the ED with worsening. - Vital Signs Vital signs: Temp Pulse Resp BP Pulse Ox 98.2 F 68 16 118/70 100 03/18/20 18:02 03/18/20 18:02 03/18/20 18:02 03/18/20 18:02 03/18/20 18:02 - Laboratory Results Result Diagrams: 03/18/20 13:56 03/18/20 13:56 Laboratory Results Interpreted: 03/18/20 03/18/20 03/18/20 13:56 13:56 13:56 Serum HCG, Qual POSITIVE H Beta HCG, Quant 2497.40 H Ur Leukocyte Esterase MODERATE H Critical Laboratory Results Reviewed: No Critical Results - Radiology Results Radiology Results Interpreted: 03/18/20 19:46 Obstetrics Ultrasound 03/18/20 14:44 IMPRESSION: POSSIBLE EARLY INTRAUTERINE . BHCG LEVEL NOT AVAILABLE FOR CORRELATION WITH US FINDINGS. CONSIDER F/U BHCG AND/OR ULTRASOUND FOR VERIFICATION AND TO EXCLUDE ECTOPIC . Trimester of : First trimester - 0 to 13 weeks. Critical Radiology Results Reviewed: No Critical Results Discharge - Discharge Clinical Impression: Qualifiers: Weeks of gestation: less than 8 weeks Qualified Code(s): Z3A.01 - Less than 8 weeks gestation of Condition: Stable Disposition: HOME, SELF-CARE Instructions: (OM) Additional Instructions: Your findings today are consistent with a 5-week . Follow-up with [facility]. As discussed avoid alcohol and illicit drugs. Return to the emergency department with worsening or new concerning symptoms of any sort. Referrals: MICA JONES MD [ACTIVE STAFF] - Follow up as needed
[2020-03-18 18:07] VITALS: BP 118/70
== END 2020-03-18 18:10 | disposition home or self-care (01) ==
LOC: ER 12:24
DX: O26.91 Pregnancy related conditions, unspecified, first trimester (principal); R10.30 Lower abdominal pain, unspecified; O21.9 Vomiting of pregnancy, unspecified; Z3A.01 Less than 8 weeks gestation of pregnancy; Z88.0 Allergy status to penicillin
CPT/HCPCS: 36415; 76817; 80053; 81001; 83690; 84702; 84703; 85025; 86900; 86901; 99284